=== PATIENT | male | born 1970 | race Caucasian/White ===

== ENCOUNTER 2020-02-08 20:29 | Emergency (ER) | payer BC ==
--- NOTE | 2020-02-08 20:47 | PDOC ---
History of Present Illness - General Chief Complaint: Pain Stated Complaint: POST OPERATIVE VENTRAL HERNIA PAIN Time Seen by Provider: 02/08/20 20:33 History Source: Patient Exam Limitations: No Limitations - History of Present Illness Initial Comments: 02/08/20 21:20 This is a 49-year-old male who comes in complaining of abdominal pain. Patient is status post ventral hernia surgery 2 days ago and has not had a bowel movement since. Patient said abdominal pain is diffuse and periumbilical. Patient denies any nausea vomiting or diarrhea. Patient denies any fevers or chills. Patient denies any frequency or dysuria or any other complaints. Patient has been taking Percocet for the pain without relief Allergies: as per nursing notes Past Medical History: none Social history: Lives with family. No smoking. No alcohol. No illicit drugs. Surgical history: None General: No fevers or chills, no weakness, no weight loss HEENT: No change in vision. No sore throat,. No ear pain CardioVascular: no chest discomfort. No shortness of breath Respiratory:No cough, or wheezing. Gastrointestinal: no nausea, vomiting, diarrhea or + constipation, No rectal bleeding Genitourinary: No dysuria, hematuria, or frequency Musculoskeletal: No joint or muscle pain or swelling Neurologic: No headache, vertigo, dizziness or loss of consciousness Psychiatric: nor depression Skin: No rashes or easy bruising Endocrine: no increased thirst or abnormal weight change Allergic: no skin or latex allergy All other systems reviewed and normal Exam: General: Well-nourished well-developed individual, no acute distress HEENT: Throat: Normal, tonsils normal, no erythema or exudate Neck: Supple, no meningeal signs, no lymphadenopathy Eyes::Pupils equal reactive and round, extraocular motion intact Chest: Nontender to palpation Cardiac: S1-S2 normal, regular rate and rhythm, no murmurs rubs or gallops Respiratory: Lungs clear to auscultation bilateral Abdomen: Soft, nondistended, normal bowel sounds, there is no tenderness on palpation diffusely Extremities: Warm, dry, no cyanosis, clubbing, or edema Skin: No rashes Neuro: Alert and oriented x3, CN II - XII intact, nonfocal exam with normal strength, normal sensation, normal reflexes, normal gait, Psych: Normal mood and affect Assessment and plan: This is a 49-year-old male with constipation and abdominal pain. Flat and upright was done that shows a large amount of stool in the large intestines consistent with constipation. Give patient a fleets oil retention enema to see if we can get some results. Repeated with 2 regular fleets enema with some relief of constipation. Patient discharged home with a bottle of mag citrate. Past History - Medical History Allergies/Adverse Reactions: Allergies Allergy/AdvReac Type Severity Reaction Status Date / Time No Known Allergies Allergy Verified 02/08/20 20:33 Home Medications: Ambulatory Orders Atorvastatin Ca [Lipitor] 20 mg PO HS 02/08/20 Carvedilol [Coreg -] 25 mg PO BID 02/08/20 Hydrochlorothiazide 12.5 mg PO DAILY 02/08/20 Lisinopril [Zestril] 10 mg PO DAILY 02/08/20 Oxycodone HCl/Acetaminophen [Percocet 5-325 mg Tablet] 1 tab PO Q6H PRN 02/08/20 Pantoprazole Sodium [Protonix] 40 mg PO DAILY 02/08/20 Polyethylene Glycol 3350 [Miralax (For Daily Use) -] 17 gm PO ONCE 02/08/20 Discharge - Discharge Information Problems reviewed: Yes Clinical Impression/Diagnosis: Constipation Qualifiers: Constipation type: unspecified constipation type Qualified Code(s): K59.00 - Constipation, unspecified Condition: Good Disposition: HOME - Admission No - Follow up/Referral Referrals: Vicente Álvarez [Primary Care Provider] - - Patient Discharge Instructions Additional Instructions: Increase your use of stool softeners laxatives and fiber in your diet and try to limit your Percocet as much as possible as the Percocet is contributing to the constipation. Follow-up mag citrate in the morning or tonight if you still are having crampy abdominal pain Return to the emergency department immediately with ANY new, persistent or worsening symptoms. Continue any medications as previously prescribed by your physician. You should follow up with your primary doctor as soon as possible regarding today's emergency department visit. . Please make sure your doctor reviews the results of your emergency evaluation. Thank you for coming to the Emergency Department today for your care. It was a pleasure to see you today. Please note that your evaluation is INCOMPLETE until you follow-up with your doctor. - Post Discharge Activity
[2020-02-08 20:57] VITALS: BP 155/87; PULSE 68; TEMP 99.3; BMI 31.1
[2020-02-08] MEDS ORDERED: MINERAL OIL ENEMA 133 ML ENEMA PR ONE (21:20)
[2020-02-08] MEDS ORDERED: SODIUM PHOSPHATE/NA BIPHOS 133 ML ENEMA PR ONE ×2 (21:46→22:49)
[2020-02-08] MEDS ORDERED: MAGNESIUM CITRATE 300 ML BOTTLE ONE (23:06)
[2020-02-08] MEDS ORDERED: MAGNESIUM CITRATE 300 ML BOTTLE PO ONE (23:49)
== END 2020-02-08 23:52 | disposition home or self-care (01) ==
LOC: FER 20:29
DX: K59.00 Constipation, unspecified (principal)
CPT/HCPCS: 74019-TC-FY; 99284-25